=== PATIENT | female | born 1955 | race Caucasian/White ===

== ENCOUNTER 2024-07-27 12:22 | Inpatient (IN) ==
[2024-07-27] MEDS: ONDANSETRON HCL/PF 4 MG/2 ML VIAL INJ STA (13:11)
--- NOTE | 2024-07-27 13:13 | Emergency Department Note ---
HPI - General Adult General Chief complaint: Abdominal Pain Stated complaint: back and stomach pain Time Seen by Provider: 07/27/24 13:02 Source: patient Mode of arrival: walk-in Limitations: no limitations History of Present Illness HPI narrative: This is a 69 year old female patient that presents to the ER with c/o abdominal pain, abdominal distention with nausea for 2 days. Patient denies any chest pain, back pain, abdominal pain, fever, chills, vomiting or diarrhea Onset (ago): day(s) (2) Location: Reports abdomen Radiation: Reports non-radiation Severity: mild Quality: Reports aching Pain Consistency: Reports constant Relieving factors: Reports none Exacerbating factors: Reports none Associated symptoms: Reports nausea/vomiting (nausea); Denies chest pain Treatments prior to arrival: Reports none Related Data Home Medications Medication Instructions Recorded Confirmed methylprednisolone 4 mg tablets in 4 mg PO DIRECTED 07/27/24 07/27/24 a dose pack omeprazole 40 mg capsule,delayed 40 mg PO BID 07/27/24 07/27/24 release Allergies Allergy/AdvReac Type Severity Reaction Status Date / Time No Known Drug Allergies Allergy Verified 07/27/24 12:55 Review of Systems Status of ROS 10 or more systems reviewed and unremark able except as noted in history and below Constitutional Denies: fever, chills, change in weight, fatigue or malaise Eyes Denies: change in vision, blurry vision, blind spots or light sensitivity Ears, nose, mouth, and throat Denies: throat pain, neck pain, throat swelling, difficulty swallowing, hoarseness or mouth pain Cardiovascular Denies: chest pain, palpitations, edema, swelling of feet/ankles or lightheadedness Respiratory Denies: shortness of breath, cough, wheezing, stridor, pain on inspiration or change in phlegm color Gastrointestinal Reports: abdominal pain and nausea; Denies: vomiting, coffee grounds in vomit, heartburn, diarrhea or constipation Genitourinary Denies: painful urination, urinary frequency, urinary urgency, u rinary incontinence or blood in urine Musculoskeletal Denies: back pain, neck pain, extremity pain, extremity swelling or joint pain Integumentary/Breast Denies: rash, itching, redness, skin pain, skin tenderness or skin swelling Neurological Denies: headache, numbness in extremities, weakness in extremities, lack of coordination, dizziness or vertigo Psychiatric Denies: anxiety, mood swings, panic attacks, change in sleep pattern, hopelessness or loss of interest Endocrine Denies: excessive urination, excessive thirst, fatigue, cold intolerance or excessive sweating Hematologic/Lymphatic Denies: easy bruising, easy bleeding or enlarged lymph nodes Allergic/Immunologic Denies: hives, throat swelling, tongue swelling or facial swelling PFSH PFS Medical History (Updated 03/29/24 @ 16:39 by Tasha Aquino NP) Hearing aid worn Social History Smoking status: current every day smoker Second hand tobacco smoke exposure: No Within the past year, how often did you have a drink containing alcohol: never Within the past year, how often did you have six or more drinks on one occasion: never Score interpretation: A score less than 3 is consistent with normal alcohol consumption. Non-prescribed substance use: denies use What is your current living situation: I presently have a place to live Problems where you live: no known problems In the past 12 months, utilities in danger of being shut off: no In past 12 months, lack of transportation kept you from medical appts, meetings, work, or getting things needed for daily living: No How hard is it for you to pay for the very basics like food, housing, medical care, and heating: decline to answer Past 12 mos, fear food will run out before able to buy more: never true In past 12 months, food didn't last until money to buy more: never true Are you following a diet prescribed by a doctor: No Are you following a special diet: No Do you want help finding or keeping work or a job: I do not need or want help Known occupational exposures/hazards: No Do you want help with school or training: No Caffeine: No How often does anyone, including family, friends and others, physically hurt you : decline to answer How often does anyone, including family, friends and others, insult or talk down to you: decline to answer How often does anyone, including family, friends and others, threaten you with harm: decline to answer How often does anyone, including family, friends and others, scream or curse at you: decline to answer Firearms in home: declined to answer Do you need help with ADLs: I don't need any help Due to a physical, mental, or emotional condition, do you have difficulty doing errands alone such as visiting a doctor's office or shopping: No Little interest or pleasure in doing things: not at all Feeling down, depressed, or hopeless: not at all Feel stressed/tense/nervous/anxious/difficulty sleeping: not at all Due to disability, difficulty making decisions: No Do you think of yourself as: decline to answer Are you currently sexually active: No service: No Exam Constitutional: normal general appearance and no apparent distress Vital Signs - 24 hr 07/27/24 12:52 Temperature 97.4 F L Pulse Rate 60 Respiratory Rate 18 Blood Pressure 176/89 Pulse Oximetry 98 Oxygen Delivery Me thod Room Air HENMT: normocephalic, head/scalp atraumatic, hearing grossly normal bilaterally and external ears normal Eyes: PERRL, EOMs intact bilaterally, conjunctivae normal and no scleral icterus Neck/C-Spine: visual inspection normal Lymph: no lymphadenopathy noted Chest: inspection of chest normal Respiratory: breath sounds equal bilaterally, normal respiratory effort, clear to auscultation bilaterally, no wheezes, no rales, no retractions and no use of accessory muscles Cardiovascular: normal heart rate noted, regular rhythm noted, no gallop, no rub, no murmur, no JVD, no clicks, peripheral pulses 2+ throughout and no additional abnormal heart sounds Gastrointestinal: abdomen abnormal to inspection (abdomen distention), abdomen soft to palpation, tender to palpation (diffuse tenderness), nontender to percussion, nondistended, normoactive bowel sounds, no hepatosplenomegaly, no masses, no pulsatile mass and no ascites Genitourinary: no CVA tenderness Back/Pelvis: spine normal to inspection Extremities: normal to inspection, normal to palpation, no tenderness, full ROM, no joint enlargement and no deformity Neurology: no movement abnormality noted, gait normal, speech normal, coordination normal, no fasciculations noted and GCS normal Psychiatry: mental status grossly normal, oriented x3, thought process normal, cooperative, affect normal, psychomotor activity normal and memory normal Skin: skin color normal Course Course Hospital Course: 1501: VSS, no s/s of acute distress noted Vital Signs Vital signs: Vital Signs Temperature 97.4 F L 07/27/24 12:52 Pulse Rate 60 07/27/24 12:52 Respiratory Rate 18 07/27/24 12:52 Blood Pressure 176/89 07/27/24 12:52 Pulse Oximetry 98 07/27/24 12:52 Oxygen Delivery Method Room Air 07/27/24 12:52 Temperature 97.4 F L 07/27/24 12:52 Pulse Rate 60 07/27/24 12:52 Respiratory Rate 18 07/27/24 12:52 Blood Pressure 176/89 07/27/24 12:52 Pulse Oximetry 98 07/27/24 12:52 Oxygen Delivery Method Room Air 07/27/24 12:52 Medical Decision Making Differential Diagnosis Differential Diagnosis: viral illness Medical Records Medical records reviewed: Yes I reviewed the patient's medical records Lab Data Lab results reviewed: Yes I reviewed the patient's lab results Labs: Lab Results 07/27/24 Range/Units 12:15 WBC 16.6 H (4.3-9.3) K/uL RBC 5.2 (4.00-5.50) M/uL Hgb 15.3 (12.5-15.8) gm/dL Hct 45.8 (35.9-46.7) % MCV 88.8 (81.0-93.7) fl MCH 29.6 (27.6-32.2) pg MCHC 33.3 (33.1-35.3) g/dl RDW 14.0 (11.4-14.2) % Plt Count 301 (152-353) K/uL MPV 7.9 (6.9-10.8) fl Gran % 72.5 H (47.8-71.3) % Lymph % (Auto) 20.1 (20.0-43.0) % [place] % (Auto) 6.4 (3.6-9.8) % Eos % (Auto) 0.8 (0.4-2.8) % Baso % (Auto) 0.2 (0.1-0.85) Lymph # (Auto) 3.3 H (1.1-3.1) [place] # (Auto) 1.1 (1.1-3.1) Eos # (Auto) 0.1 (0.0-0.2) Baso # (Auto) 0.0 (0.0-0.1) Absolute Gran (auto) 12.0 H (2.3-6.0) Sodium 140 (136-145) mmol/L Potassium 3.2 L (3.6-5.2) mmol/L Chloride 100.0 (98-107) mmol/L Carbon Dioxide 32 (21-32) mmol/L Anion Gap 8.0 (4-14) mEq/L BUN 9 (7-18) mg/dL Creatinine 0.7 (0.6-1.3) mg/dL Estimated GFR 94.2 (>59.9) Glucose 92 (70-110) mg/dL Calcium 9.5 (8.5-10.1) mg/dL Total Bilirubin 0.45 (0.0-1.0) mg/dL AST 15 (15-37) U/L ALT 18 L (30-65) U/L Alkaline Phosphatase 108 (50-136) U/L Total Protein 6.6 (6.4-8.2) g/dL Albumin 3.1 L (3.4-5.0) g/dL Lipase 2161.0 H (16.0-77.0) U/L Urine Color Yellow (STRAW/YELL.) Urine Appearance Clear (CLEAR) Ur Specific [place] 1.025 (1.001-1.035) Urine Protein Negative (NEGATIVE) Urine Glucose (UA) Normal (NORMAL) Urine Ketones Negative (NEGATIVE) Urine Occult Blood Negative (NEG - TRACE) Urine Nitrite Negative (NEGATIVE) Urine Bilirubin Negative (NEGATIVE) Urine Urobilinogen Normal (NORMAL) Ur Leukocyte Esterase Negative (NEGATIVE) Fluid pH 7.0 (5 - 9) Imaging Data CT scan - abdomen: Attestation: I have reviewed the pertinent imaging results. ECG Data Attestation: I have reviewed the pertinent ECG results. Discharge Plan Discharge Patient Disposition: Admitted As Inpatient Condition: Stable Clinical Impression: Pancreatitis, Leukocytosis Time of Disposition: 15:02
[2024-07-27 13:32] LABS: Basophils%(Percent) Auto 0.2 (0.1-0.85); Eosinophils#(Absolute)Auto 0.1 (0.0-0.2); Eosinophils%(Percent) Auto 0.8 % (0.4-2.8); Granulocytes % - Auto 72.5 % (47.8-71.3); Hematocrit 45.8 % (35.9-46.7); Mean Corpuscular Volume 88.8 fl (81.0-93.7); Monocytes #(Absolute)- Auto 1.1 (1.1-3.1); Monocytes %(Percent)- Auto 6.4 % (3.6-9.8); Platelet Count 301 K/uL (152-353); White Blood Count 16.6 K/uL (4.3-9.3)
[2024-07-27 13:34] LABS: Specific Gravity Urine 1.025 (1.001-1.035); Urine Appearance CLEAR (CLEAR); Urine Blood NEGATIVE (NEG - TRACE); Urine Color YELLOW (STRAW/YELL.); Urine Urobilinogen Normal (NORMAL)
[2024-07-27 13:37] LABS: Potassium 3.2 mmol/L (3.6-5.2)
[2024-07-27] MEDS ORDERED: POTASSIUM CHLORIDE 20 MEQ TAB.ER.PRT PO ONE (14:01)
[2024-07-27] MEDS: POTASSIUM CHLORIDE 20 MEQ TAB.ER.PRT PO ONE (14:02)
[2024-07-27] MEDS: PIPERACILLIN/TAZOBACTAM 3.375 3.375 GM in 0.9 % SODIUM CHLORIDE MB+ 100 ML IV STA (15:18)
[2024-07-27] MEDS: MORPHINE SULFATE 2 MG/ML CARTRIDGE IV STA (17:30)
[2024-07-27] MEDS ORDERED: MORPHINE SULFATE 2 MG/ML CARTRIDGE IV ONE (17:30)
[2024-07-27] MEDS: SODIUM CHLORIDE 0.45 % 1,000 ML IV SCH (17:41)
[2024-07-27] MEDS: 0.9 % SODIUM CHLORIDE 1000 ML 1,000 ML IV SCH (19:40)
[2024-07-27] MEDS: ONDANSETRON HCL/PF 4 MG/2 ML VIAL INJ PRN (21:28)
[2024-07-27] MEDS: MORPHINE SULFATE 2 MG/ML CARTRIDGE IV PRN (21:28)
[2024-07-27] MEDS: ENOXAPARIN SODIUM 40 MG/0.4 ML SYRINGE SUBQ SCH (21:28)
[2024-07-27] MEDS: PANTOPRAZOLE SODIUM 40 MG VIAL IVP SCH (21:28)
[2024-07-27] MEDS: PIPERACILLIN/TAZOBACTAM 3.375 3.375 GM in 0.9 % SODIUM CHLORIDE MB+ 100 ML IV SCH (21:29)
[2024-07-28] MEDS: ACETAMINOPHEN 325 MG TABLET PO PRN (05:08)
[2024-07-28 05:14] LABS: Basophils%(Percent) Auto 0.2 (0.1-0.85); Eosinophils#(Absolute)Auto 0.4 (0.0-0.2); Eosinophils%(Percent) Auto 2.2 % (0.4-2.8); Granulocytes % - Auto 76.3 % (47.8-71.3); Granulocytes#(Absolute)- Auto 13.2 (2.3-6.0); Hematocrit 45.1 % (35.9-46.7); Mean Corpuscular Volume 87.9 fl (81.0-93.7); Monocytes %(Percent)- Auto 5.7 % (3.6-9.8); Platelet Count 271 K/uL (152-353); White Blood Count 17.3 K/uL (4.3-9.3)
[2024-07-28 06:12] LABS: Potassium 3.7 mmol/L (3.6-5.2)
[2024-07-28] MEDS: MAGNESIUM OXIDE 400 MG TABLET PO ONE (08:34)
[2024-07-28] MEDS: METOCLOPRAMIDE HCL 5 MG in 0.9 % SODIUM CHLORIDE 50 ML IVP SCH (13:02)
[2024-07-29 05:50] LABS: Basophils%(Percent) Auto 0.3 (0.1-0.85); Eosinophils#(Absolute)Auto 0.3 (0.0-0.2); Eosinophils%(Percent) Auto 2.3 % (0.4-2.8); Granulocytes % - Auto 78.5 % (47.8-71.3); Granulocytes#(Absolute)- Auto 10.7 (2.3-6.0); Mean Corpuscular Volume 87.2 fl (81.0-93.7); Monocytes #(Absolute)- Auto 0.7 (1.1-3.1); Monocytes %(Percent)- Auto 5.1 % (3.6-9.8); Platelet Count 252 K/uL (152-353); White Blood Count 13.7 K/uL (4.3-9.3)
[2024-07-29 06:18] LABS: Potassium 3.1 mmol/L (3.6-5.2)
[2024-07-29 09:41] VITALS: TEMP 97.6
[2024-07-29 12:48] VITALS: BP 132/73; PULSE 72; RESP 18
--- NOTE | 2024-07-29 13:44 | History & Physical Report ---
H&P: HPI History of Present Illness Chief complaint: pancreatitis, leukocytosis Narrative: This is a 69 year old female patient that presents to the ER with c/o abdominal pain, abdominal distention with nausea for 2 days. Patient denies any chest pain, back pain, abdominal pain, fever, chills, vomiting or diarrhea. Patient admitted to med/surg for observation. Review of Systems Status of ROS 10 or more systems reviewed and unremark able except as noted in history and below Constitutional Denies: fever, chills, change in weight, fatigue or malaise Eyes Denies: change in vision, blurry vision, blind spots or light sensitivity Ears, nose, mouth, and throat Denies: throat pain, neck pain, throat swelling, difficulty swallowing, hoarseness, mouth pain or vertigo Cardiovascular Denies: chest pain, palpitations, edema, swelling of feet/ankles, lightheadedness or shortness of breath with exertion Respiratory Denies: shortness of breath, cough, wheezing, stridor, pain on inspiration or change in phlegm color Gastrointestinal Reports: abdominal pain and nausea; Denies: vomiting, coffee grounds in vomit, heartburn, diarrhea, constipation or difficulty swallowing Genitourinary Denies: painful urination, urinary frequency, urinary urgency, urinary incontinence or blood in urine Musculoskeletal Denies: back pain, neck pain, extremity pain, extremity swelling or joint pain Integumentary/Breast Denies: rash, itching, redness, skin pain, skin tenderness or skin swelling Neurological Denies: headache, numbness in extremities, weakness in extremities, lack of coordination, dizziness or vertigo Psychiatric Denies: anxiety, mood swings, panic attacks, change in sleep pattern, hopelessness or loss of interest Endocrine Denies: excessive urination, excessive thirst, fatigue, cold intolerance or excessive sweating Hematologic/Lymphatic Denies: easy bruising, easy bleeding or enlarged lymph nodes Allergic/Immunologic Denies: hives, throat swelling, tongue swelling, facial swelling or wheezing [facility] Medical History (Updated 07/29/24 @ 13:33 by BARON Bunn) Hypoalbuminemia Hearing aid worn Social History Smoking status: current every day smoker Second hand tobacco smoke exposure: No Within the past year, how often did you have a drink containing alcohol: never Within the past year, how often did you have six or more drinks on one occasion: never Score interpretation: A score less than 3 is consistent with normal alcohol consumption. Non-prescribed substance use: denies use What is your current living situation: I presently have a place to live Problems where you live: no known problems In the past 12 months, utilities in danger of being shut off: no In past 12 months, lack of transportation kept you from medical appts, meetings, work, or getting things needed for daily living: No How hard is it for you to pay for the very basics like food, housing, medical care, and heating: decline to answer Past 12 mos, fear food will run out before able to buy more: never true In past 12 months, food didn't last until money to buy more: never true Are you following a diet prescribed by a doctor: No Are you following a special diet: No Do you want help finding or keeping work or a job: I do not need or want help Known occupational exposures/hazards: No Highest level of school completed/degree received: high school Do you want help with school or training: No Caffeine: No How often does anyone, including family, friends and others, physically hurt you : decline to answer How often does anyone, including family, friends and others, insult or talk down to you: decline to answer How often does anyone, including family, friends and others, threaten you with harm: decline to answer How often does anyone, including family, friends and others, scream or curse at you: decline to answer Firearms in home: declined to answer Do you need help with ADLs: I don't need any help Due to a physical, mental, or emotional condition, do you have difficulty doing errands alone such as visiting a doctor's office or shopping: No Little interest or pleasure in doing things: not at all Feeling down, depressed, or hopeless: not at all Feel stressed/tense/nervous/anxious/difficulty sleeping: not at all Due to disability, difficulty making decisions: No Do you think of yourself as: decline to answer Are you currently sexually active: No service: No Meds Home Medications and Allergies Home Medications Medication Instructions Recorded Confirmed Type omeprazole 40 mg capsule,delayed 40 mg PO BID 07/27/24 07/27/24 History release pantoprazole 40 mg tablet,delayed 40 mg PO DAILY pancreatitis #14 07/29/24 Rx release (Protonix) tabs potassium chloride 10 mEq 10 meq PO DAILY hypokalemia #30 07/29/24 Rx capsule,extended release caps vit no.95-ferrous 1 tab PO DAILY 07/29/24 07/29/24 History fumarate 28 mg-folic acid 800 mcg tablet ( Multivitamins) Allergies Allergy/AdvReac Type Severity Reaction Status Date / Time No Known Drug Allergies Allergy Verified 07/27/24 12:55 Exam Exam: Patient in low hurt's position upon entering room for exam. Constitutional: abnormal general appearance (disheveled) and (chronically ill), distress noted (mild), average body habitus, no limitations and alert Vital Signs - 24 hr 07/27/24 17:00 07/27/24 17:31 07/27/24 17:38 Temperature 97.4 F L Pulse Rate 65 50 L 50 L Pulse Rate [Right] Respiratory Rate 20 20 20 Blood Pressure 178/80 165/74 165/74 Blood Pressure [Le ft Arm] Pulse Oximetry 96 96 96 Oxygen Delivery [facility] Room Air Room Air 07/27/24 19:57 07/28/24 00:00 07/28/24 04:00 Temperature 98.2 F 98.0 F 98.5 F Pulse Rate Pulse Rate [Right] 62 68 65 Respiratory Rate 18 18 18 Blood Pressure Blood Pressure [Le ft Arm] 132/84 126/74 122/77 Pulse Oximetry 96 96 95 Oxygen Delivery [facility] Room Air Room Air Room Air 07/28/24 07:48 07/28/24 12:00 Temperature 97.7 F 97.7 F Pulse Rate Pulse Rate [Right] 60 65 Respiratory Rate 18 18 Blood Pressure Blood Pressure [Le ft Arm] 146/71 136/78 Pulse Oximetry 94 L 92 L Oxygen Delivery [facility] Room Air Room Air HENMT: normocephalic, head/scalp atraumatic, hearing grossly normal bilaterally, external ears normal and external nose normal Eyes: PERRL, conjunctivae normal, alignment normal and visual acuity normal Neck/C-Spine: trachea midline Lymph: no lymphadenopathy noted and no lymphedema noted Chest: inspection of chest normal and palpation of chest normal Respiratory: breath sounds equal bilaterally and normal respiratory effort Cardiovascular: normal heart rate noted, regular rhythm noted and no murmur Gastrointestinal: abdomen abnormal to inspection, abdomen soft to palpation, tender to palpation, tender to percussion, distended and abnormal bowel sounds noted Genitourinary: no CVA tenderness Back/Pelvis: spine normal to inspection Extremities: normal to inspection, normal to palpation, no tenderness, full ROM and no deformity Neurology: deck steward II-XII intact, no movement abnormality noted, no focal motor deficit noted, no sensory deficits noted, gait abnormality noted (unable to access) and speech normal Psychiatry: Mental Status Exam documented within this Exam's Psych section mental status grossly normal, oriented x3, thought process normal, cooperative, affect normal, psychomotor activity normal and memory normal Skin: skin color normal and skin turgor normal Assessment and Plan Assessment and Plan (1) Acute pancreatitis: Qualifiers: Acute pancreatitis complication: unspecified Pancreatitis type: unspecified pancreatitis type Qualified Code(s): K85.90 - Acute pancreatitis without necrosis or infection, unspecified Code(s): K85.90 - Acute pancreatitis without necrosis or infection, unspecified (2) Hypoalbuminemia: Code(s): E88.09 - Other disorders of plasma-protein metabolism, not elsewhere classified (3) Hypomagnesemia: Code(s): E83.42 - Hypomagnesemia (4) Hypokalemia: Code(s): E87.6 - Hypokalemia (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 (6) Hypophosphatemia: Code(s): E83.39 - Other disorders of phosphorus metabolism Plan Sodium Chloride 1,000 mls @ 200 mls/hr IV CONT Piperacillin Sod/Tazobactam Sod 3.375 gm in Sodium Chloride 100 mls @ 200 mls/hr IV Q6h Pantoprazole Sodium 40 mg IVP BID Enoxaparin Sodium 40 mg SUBQ Q12H Metoclopramide Hcl 5 mg in Sodium Chloride 51 mls @ 200 mls/hr IVP Q6H Potassium Chloride 40 meq PO ONCE Potassium Chloride 10 meq in 100 mls @ 100 mlls/hr IV ONCE Potassium Phosphate 500 mg PO ONCE Magnesium 400 mg PO ONCE Acetaminophen 650 mg PO Q4H PRN Ondansetron Hcl 4 mg INJ Q6H PRN Morphine Sulfate 2 mg IV ONCE PRN Continue to monitor labs and symptoms. Results Labs Labs: CBC WBC 17.3 K/uL (4.3-9.3) H 07/28/24 05:10 RBC 5.1 M/uL (4.00-5.50) 07/28/24 05:10 Hgb 15.3 gm/dL (12.5-15.8) 07/28/24 05:10 Hct 45.1 % (35.9-46.7) 07/28/24 05:10 MCV 87.9 fl (81.0-93.7) 07/28/24 05:10 MCH 29.9 pg (27.6-32.2) 07/28/24 05:10 MCHC 34.0 g/dl (33.1-35.3) 07/28/24 05:10 RDW 14.3 % (11.4-14.2) H 07/28/24 05:10 Plt Count 271 K/uL (152-353) 07/28/24 05:10 MPV 7.8 fl (6.9-10.8) 07/28/24 05:10 Gran % 76.3 % (47.8-71.3) H 07/28/24 05:10 Lymph % (Auto) 15.6 % (20.0-43.0) L 07/28/24 05:10 [place] % (Auto) 5.7 % (3.6-9.8) 07/28/24 05:10 Eos % (Auto) 2.2 % (0.4-2.8) 07/28/24 05:10 Baso % (Auto) 0.2 (0.1-0.85) 07/28/24 05:10 Lymph # (Auto) 2.7 (1.1-3.1) 07/28/24 05:10 [place] # (Auto) 1.0 (1.1-3.1) L 07/28/24 05:10 Eos # (Auto) 0.4 (0.0-0.2) H 07/28/24 05:10 Baso # (Auto) 0.0 (0.0-0.1) 07/28/24 05:10 Absolute Gran (auto) 13.2 (2.3-6.0) H 07/28/24 05:10 BMP Sodium 136 mmol/L (136-145) 07/28/24 05:10 Potassium 3.7 mmol/L (3.6-5.2) 07/28/24 05:10 Chloride 101.0 mmol/L (98-107) 07/28/24 05:10 Carbon Dioxide 26 mmol/L (21-32) 07/28/24 05:10 Anion Gap 9.0 mEq/L (4-14) 07/28/24 05:10 BUN 7 mg/dL (7-18) 07/28/24 05:10 Creatinine 0.9 mg/dL (0.6-1.3) 07/28/24 05:10 Estimated GFR 69.6 (>59.9) 07/28/24 05:10 Glucose 84 mg/dL (70-110) 07/28/24 05:10 Calcium 8.6 mg/dL (8.5-10.1) 07/28/24 05:10 Phosphorus 3.4 mg/dL (2.5-4.9) 07/28/24 05:10 Magnesium 1.7 mg/dL (1.8-2.4) L 07/28/24 05:10 Total Bilirubin 0.92 mg/dL (0.0-1.0) 07/28/24 05:10 AST 12 U/L (15-37) L 07/28/24 05:10 ALT 12 U/L (30-65) L 07/28/24 05:10 Alkaline Phosphatase 99 U/L (50-136) 07/28/24 05:10 Total Protein 5.8 g/dL (6.4-8.2) L 07/28/24 05:10 Albumin 2.6 g/dL (3.4-5.0) L 07/28/24 05:10 Liver Function Total Bilirubin 0.92 mg/dL (0.0-1.0) 07/28/24 05:10 AST 12 U/L (15-37) L 07/28/24 05:10 ALT 12 U/L (30-65) L 07/28/24 05:10 Alkaline Phosphatase 99 U/L (50-136) 07/28/24 05:10 Total Protein 5.8 g/dL (6.4-8.2) L 07/28/24 05:10 Albumin 2.6 g/dL (3.4-5.0) L 07/28/24 05:10 Urine Urine Color Yellow (STRAW/YELL.) 07/27/24 12:15 Urine Appearance Clear (CLEAR) 07/27/24 12:15 Ur Specific [place] 1.025 (1.001-1.035) 07/27/24 12:15 Urine Protein Negative (NEGATIVE) 07/27/24 12:15 Urine Glucose (UA) Normal (NORMAL) 07/27/24 12:15 Urine Ketones Negative (NEGATIVE) 07/27/24 12:15 Urine Occult Blood Negative (NEG - TRACE) 07/27/24 12:15 Urine Nitrite Negative (NEGATIVE) 07/27/24 12:15 Urine Bilirubin Negative (NEGATIVE) 07/27/24 12:15 Urine Urobilinogen Normal (NORMAL) 07/27/24 12:15 Ur Leukocyte Esterase Negative (NEGATIVE) 07/27/24 12:15 Imaging Imaging ordered: CT scan - abdomen and US - abdomen Radiologist's impression: CT abdomen pelvis with contrast Date of Service: 07/27/24 HISTORY: Abdominal pain, nausea, diarrhea TECHNIQUE: Axial postcontrast images with coronal and sagittal reformats. Dose reduction procedures were used with mA/kv adjusted for body size. COMPARISON: None FINDINGS: Lung bases are free of acute infiltrates. The liver, spleen, and adrenal glands appear within normal limits. Pancreas appears within normal limits in size. However there is a large amount of peripancreatic fluid most likely inflammatory in origin and suggestive of acute pancreatitis. Chemical correlation is recommended. No pancreatic abscess, pancreatic necrosis, or localized pseudocyst identified. No opaque stones are present within the gallbladder. Kidneys are unobstructed and without stones or masses. No ureteral calculi are identified. The stomach is distended with gas food matter and fluid. This could be on the basis of gastric outlet obstruction, recent ingestion, or gastroparesis. Clinical correlation recommended. Appendix not identified with absolute certainty. No secondary signs of appendicitis are present. Calcific atherosclerotic changes present in the nondilated abdominal aorta. No intraperitoneal or retroperitoneal lymphadenopathy of significance identified. There are no definite findings suggestive of enteritis, colitis, or diverticulitis. Examination of the pelvis demonstrated no pelvic masses, pelvic fluid, or pelvic lymphadenopathy. There are prominent draining veins within the pelvis which drain via an enlarged left ovarian vein into the left renal vein. This finding can be seen in but is not diagnostic of chronic pelvic congestive syndrome. Clinical and historical correlation recommended. No lytic or blastic skeletal lesions of significance identified. IMPRESSION: Findings suggestive of acute pancreatitis without evidence for pancreatic abscess or pancreatic necrosis. Clinical and chemical correlation recommended. Stomach distended with gas, food matter, and fluid which could be on the basis of recent ingestion, gastric outlet obstruction, or gastroparesis. Multiple large draining veins in the pelvis draining via an enlarged left ovarian vein into the left renal vein. This finding can be seen in but is not diagnostic of chronic pelvic congestive syndrome. Clinical and historical correlation recommended. US ABDOMEN COMPLETE Date of Service: 07/28/24 HISTORY: pancreatitispancreatitis; - COMPARISON: Abdominopelvic CT July 27, 2024 TECHNIQUE: 156 images made by the school psychology professor. Salgado scale and color-flow images of the abdomen were obtained. FINDINGS: The liver has normal echogenicity and size. No mass or intrahepatic biliary duct dilatation is present. The intrahepatic inferior vena cava was imaged. The pancreatic head and body are unremarkable. The pancreatic tail is not well seen due to overlying bowel gas. The gallbladder is normally distended with no stones, wall thickening, or pericholecystic fluid. No extrahepatic biliary duct dilatation; common duct is normal. The right kidney is normal in size and echogenicity. The left kidney is normal in size and echogenicity. No hydronephrosis or solid mass. The spleen is normal in size and echogenicity. Aorta has a normal caliber with no abdominal aortic aneurysm. Aortic bifurcation not seen because of overlying bowel gas. There is mild ascites at upper abdomen and slightly at pancreas. IMPRESSION: Acute interstitial pancreatitis.
[2024-07-29] MEDS ORDERED: POTASSIUM CHLORIDE IN WATER 10 MEQ/100 ML PIGGYBACK IV SCH (15:00)
[2024-07-29] MEDS: MAGNESIUM OXIDE 400 MG TABLET PO ONE (15:13)
[2024-07-29] MEDS: POTASSIUM CHLORIDE 20 MEQ TAB.ER.PRT PO ONE (15:13)
[2024-07-29] MEDS: POTASSIUM CHLORIDE IN WATER 10 MEQ/100 ML PIGGYBACK IV ONE (15:13)
[2024-07-29] MEDS: POTASSIUM PHOSPHATE 500 MG TABLET.SOL PO ONE (15:13)
--- NOTE | 2024-07-29 16:19 | Discharge Summary ---
DS: Providers Provider Date of admission: 07/27/24 15:08 Primary care physician: Amita Montelongo Admitting clinician: Tasha Aquino Attending physician on admission: Tanisha Cantrell Attending physician on discharge: Tanisha Cantrell Discharging clinician: Tanisha Cantrell Anticipated date of discharge: 07/29/24 DS: Diagnosis Discharge Diagnosis (1) Acute pancreatitis: Qualifiers: Pancreatitis type: unspecified pancreatitis type Acute pancreatitis complication: unspecified Qualified Code(s): K85.90 - Acute pancreatitis without necrosis or infection, unspecified (2) Hypoalbuminemia: (3) Hypomagnesemia: (4) Hypokalemia: (5) Basophilic leukocytosis: (6) Hypophosphatemia: Plan Sodium Chloride 1,000 mls @ 200 mls/hr IV CONT Piperacillin Sod/Tazobactam Sod 3.375 gm in Sodium chloride 100 mls @ 200 mls/hr IV Q6H Pantoprazole Sodium 40 mg IVP BID Enoxaparin Sodium 40 mg IVP BID Metoclopramide Hcl 5 mg in Sodium Chloride 51 mls @ 200 mls/hr IVP Q6H Potassium Chloride 10 meq in 100 mls @ 100 mls/hr IV ONCE Acetaminophen 650 mg PO Q4H PRN Ondansetron Hcl 4 mg INJ Q6H PRN Morphine Sulfate 2 mg IV ONCE PRN Patient symptoms and problems have resolved and progressed to patient's baseline. DS: Summary Hospital Course Hospital Course: This is a 69 year old female patient that presents to the ER with c/o abdominal pain, abdominal distention with nausea for 2 days. Patient denies any chest pain, back pain, abdominal pain, fever, chills, vomiting or diarrhea. Patient admitted to med/surg for observation. Patient responded to treatment care well and had an uneventful hospital stay. Acute symptoms and problems have been resolved and returned to patient's baseline at this time. Patient is to follow up with PCP in 5-7 days of discharge for post hospital follow up apppointment. Status at Discharge Functional status at discharge: independent ambulation Overall status at discharge: patient is back to baseline Time Spent with Patient Time attestation: Total time spent providing and/or coordinating discharge services: Time spent: greater than 30 minutes Exam Exam: Patient in low hurt's position upon entering room for exam with family members at bedside. Constitutional: normal general appearance, no apparent distress, average body habitus, no limitations and alert Vital Signs - 24 hr 07/28/24 16:00 07/28/24 20:00 07/29/24 00:00 Temperature 98.4 F 98.1 F 98.4 F Pulse Rate [Right] 71 72 67 Respiratory Rate 20 18 18 Blood Pressure [Le ft Arm] 143/77 138/67 128/64 Pulse Oximetry 94 L 94 L 94 L Oxygen Delivery Me thod Room Air Room Air Room Air 07/29/24 04:00 07/29/24 08:00 07/29/24 12:00 Temperature 98.1 F 97.6 F 97.6 F Pulse Rate [Right] 68 70 72 Respiratory Rate 19 17 18 Blood Pressure [Le ft Arm] 126/68 128/51 132/73 Pulse Oximetry 96 94 L 98 Oxygen Delivery Me thod Room Air Room Air Room Air HENMT: normocephalic, head/scalp atraumatic, hearing grossly normal bilaterally, external ears normal and external nose normal Eyes: PERRL, EOMs intact bilaterally, conjunctivae normal, no scleral icterus, alignment normal and visual acuity normal Neck/C-Spine: visual inspection normal and trachea midline Lymph: no lymphadenopathy noted and no lymphedema noted Chest: inspection of chest normal and palpation of chest normal Respiratory: breath sounds equal bilaterally, normal respiratory effort, clear to auscultation bilaterally, no wheezes, no rales, no retractions and no use of accessory muscles Cardiovascular: normal heart rate noted, regular rhythm noted, no gallop, no rub, no murmur, no JVD, no clicks, peripheral pulses 2+ throughout and no additional abnormal heart sounds Gastrointestinal: abdomen abnormal to inspection, abdomen soft to palpation, nontender to palpation, nontender to percussion, nondistended, abnormal bowel sounds noted (hyperactive bowel sounds) (occasional high in pitch), no hepat osplenomegaly, no masses, no pulsatile mass and no ascites Genitourinary: no CVA tenderness Back/Pelvis: spine normal to inspection Extremities: normal to inspection, normal to palpation, no tenderness, full ROM, no joint enlargement and no deformity Neurology: boatbuilder wood II-XII intact, no movement abnormality noted, no focal motor deficit noted, no sensory deficits noted, gait abnormality noted (unable to access), speech normal, coordination normal, no fasciculations noted and GCS normal Psychiatry: Mental Status Exam documented within this Exam's Psych section mental status grossly normal, oriented x3, thought process normal, cooperative, affect normal, psychomotor activity normal and memory normal Skin: skin color normal and skin turgor normal DS: Data Data Completed and Pending Labs on day of discharge: Labs from last 24 hours 07/29/24 07/29/24 05:40 05:30 WBC 13.7 H RBC 4.7 Hgb 14.1 Hct 41.0 MCV 87.2 MCH 30.0 MCHC 34.4 RDW 14.1 Plt Count 252 MPV 7.8 Gran % 78.5 H Lymph % (Auto) 13.8 L Schleicher % (Auto) 5.1 Eos % (Auto) 2.3 Baso % (Auto) 0.3 Lymph # (Auto) 1.9 Schleicher # (Auto) 0.7 L Eos # (Auto) 0.3 H Baso # (Auto) 0.0 Absolute Gran (auto) 10.7 H Sodium 137 Potassium 3.1 L Chloride 104.0 Carbon Dioxide 25 Anion Gap 8.0 BUN 7 Creatinine 0.7 Estimated GFR 94.2 Glucose 61 L Calcium 8.1 L Phosphorus 2.4 L Magnesium 1.8 Total Bilirubin 1.24 H AST 8 L ALT 7 L Alkaline Phosphatase 82 B-Natriuretic Peptide 89.3 Total Protein 5.4 L Albumin 2.2 L Triglycerides 70 Cholesterol 118 LDL Cholesterol 72.0 VLDL Cholesterol, Calc 14 HDL Cholesterol 30 LDL/HDL Ratio 2.4 Cholesterol/HDL Ratio [address] Lipase [address] scan - abdomen: Radiologist's impression: CT abdomen pelvis with contrast HISTORY: Abdominal pain, nausea, diarrhea TECHNIQUE: Axial postcontrast images with coronal and sagittal reformats. Dose reduction procedures were used with mA/kv adjusted for body size. COMPARISON: None FINDINGS: Lung bases are free of acute infiltrates. The liver, spleen, and adrenal glands appear within normal limits. Pancreas appears within normal limits in size. However there is a large amount of peripancreatic fluid most likely inflammatory in origin and suggestive of acute pancreatitis. Chemical blane elation is recommended. No pancreatic abscess, pancreatic necrosis, or localized pseudocyst identified. No opaque stones are present within the gallbladder. Kidneys are unobstructed and without stones or masses. No ureteral calculi are identified. The stomach is distended with gas food matter and fluid. This could be on the basis of gastric outlet obstruction, recent ingestion, or gastroparesis. Clinical correlation recommended. Appendix not identified with absolute certainty. No secondary signs of appendicitis are present. Calcific atherosclerotic changes present in the nondilated abdominal aorta. No intraperitoneal or retroperitoneal lymphadenopathy of significance identified. There are no definite findings suggestive of enteritis, colitis, or diverticulitis. Examination of the pelvis demonstrated no pelvic masses, pelvic fluid, or pelvic lymphadenopathy. There are prominent draining veins within the pelvis which drain via an enlarged left ovarian vein into the left renal vein. This finding can be seen in but is not diagnostic of chronic pelvic congestive syndrome. Clinical and historical correlation recommended. No lytic or blastic skeletal lesions of significance identified. IMPRESSION: Findings suggestive of acute pancreatitis without evidence for pancreatic abscess or pancreatic necrosis. Clinical and chemical correlation recommended. Stomach distended with gas, food matter, and fluid which could be on the basis of recent ingestion, gastric outlet obstruction, or gastroparesis. Multiple large draining veins in the pelvis draining via an enlarged left ovarian vein into the left renal vein. This finding can be seen in but is not diagnostic of chronic pelvic congestive syndrome. Clinical and historical correlation recommended. US - abdomen: Radiologist's impression: US ABDOMEN COMPLETE HISTORY: pancreatitispancreatitis; - COMPARISON: Abdominopelvic CT July 27, 2024 TECHNIQUE: 156 images made by the chief wellness officer. Salgado scale and color-flow images of the abdomen were obtained. FINDINGS: The liver has normal echogenicity and size. No mass or intrahepatic biliary duct dilatation is present. The intrahepatic inferior vena cava was imaged. The pancreatic head and body are unremarkable. The pancreatic tail is not well seen due to overlying bowel gas. The gallbladder is normally distended with no stones, wall thickening, or pericholecystic fluid. No extrahepatic biliary duct dilatation; common duct is normal. The right kidney is normal in size and echogenicity. The left kidney is normal in size and echogenicity. No hydronephrosis or solid mass. The spleen is normal in size and echogenicity. Aorta has a normal caliber with no abdominal aortic aneurysm. Aortic bifurcation not seen because of overlying bowel gas. There is mild ascites at upper abdomen and slightly at pancreas. IMPRESSION: Acute interstitial pancreatitis. Discharge Plan Discharge Disposition: Home, Self-Care Condition: Improved Discharge Medications: New potassium chloride 10 mEq capsule, extended release 10 meq PO DAILY Qty: 30 0RF pantoprazole [Protonix] 40 mg tablet,delayed release (DR/EC) 40 mg PO DAILY Qty: 14 0RF Continued omeprazole 40 mg capsule,delayed release(DR/EC) 40 mg PO BID PNV [id number] fumarate-FA [ Multivitamins] 28 mg iron- 800 mcg tablet 1 tab PO DAILY Discontinued methylprednisolone 4 mg tablets,dose pack 4 mg PO DIRECTED BC Pain Relief 845-65 mg powder in packet 1 ea PO Q8H PRN (Reason: pain) Discharge Orders: Discharge Order (Routine); Ordered 07/29/24 Ordered By: Tanisha Cantrell Activity: increase activity as tolerated Diet: low fat, low cholesterol Diet Detail: small frequent meals Interventions: Discharge Assessment Last Done: 07/29/24 15:24 MED/SURG & ICU Observation Charge Sheet Last Done: 07/29/24 05:47 Patient Instructions: Pancreatitis (DC), Hypokalemia (DC), Hypophosphatemia (DC) Activity Restrictions/Additional Instructions: patient needs BP Journal and pain log of occurance and activity and food journal and what improved the pain to carry to her PCP on follow up on Thursday and needs repeat CBC, CMP, Lipase and mag and phos on follow up please increase water intake and foods list to avoid with the pancreatitis and patient states she will avoid tylenol products and will not partake of any Alchol of any type. Forms: Portal/Health Info Access Inst Follow-Ups: Provider,NO PCP [Physician] -
== END 2024-07-29 16:29 | disposition home or self-care (01) | DRG 440 ==
LOC: ED 12:22 → MS 12:22 → OBSVTOIN 15:08 → MS 17:39
PROVIDERS: ADMIT Family Medicine; ATTEND Family Medicine
DX: D72.824 Basophilia; K85.90 Acute pancreatitis without necrosis or infection, unspecified; R14.0 Abdominal distension (gaseous); R10.9 Unspecified abdominal pain; E88.09 Other disorders of plasma-protein metabolism, not elsewhere classified; E83.42 Hypomagnesemia; E87.6 Hypokalemia; R11.0 Nausea; E83.39 Other disorders of phosphorus metabolism